=== PATIENT | female | born 1990 | race African-American/Black ===

== ENCOUNTER 2017-06-19 07:54 | Emergency (ER) | payer OTHER ==
[2017-06-19] MEDS ORDERED: IPRATROPIUM/ALBUTEROL 3 ML NEB INH STA (08:59)
[2017-06-19] MEDS ORDERED: IPRATROPIUM/ALBUTEROL 3 ML NEB INH ONE (09:13)
--- NOTE | 2017-06-19 10:09 | XRAY Preliminary Report ---
Exam: XR CHEST 2 VIEW PA/LAT IMPRESSION: No radiographically apparent acute abnormality in the chest. Clear lungs. [facility] SITE ID: [id number]
--- NOTE | 2017-06-19 10:11 | XRAY Report ---
EXAM: CHEST RADIOGRAPHY EXAM DATE: 06/19/2017 09:58 AM. CLINICAL HISTORY: Cough and dyspnea. COMPARISON: None. TECHNIQUE: 2 views. FINDINGS: Lungs/Pleura: No focal opacities evident. No pleural effusion. No pneumothorax. Normal volumes. Mediastinum: Heart and mediastinal contours are unremarkable. Other: Posterior elements of T1 and T2 are unfused; an incidental finding of doubtful clinical signif icance. IMPRESSION: No radiographically apparent acute abnormality in the chest. Clear lungs. [facility] Referring Provider Line: [phone] SITE ID: [id number]
[2017-06-19] MEDS ORDERED: DEXAMETHASONE 10 MG/ML VIAL PO STA (10:26)
--- NOTE | 2017-06-19 10:28 | ED Physician Documentation ---
PD HPI DYSPNEA - Stated complaint Stated Complaint: cough - Chief complaint Chief Complaint: Resp - History obtained from History obtained from: Patient - History of Present Illness Timing - onset: How many weeks ago (1) Timing - details: Gradual onset Associated symptoms: Fever, Cough Similar symptoms before: No diagnosis (Reports similar symptoms several months ago.) - Additional information Additional information: The patient is a 26-year-old female who presents with productive cough of one week's duration. She complains of congestion and felt "feverish" 2 nights ago. She denies headache, sore throat, or myalgias. She reports history of similar symptoms several months ago, that resolved spontaneously. She smokes cigarettes. Review of Systems Constitutional: reports: Fever Nose: reports: Congestion Throat: denies: Sore throat Cardiac: denies: Chest pain / pressure Respiratory: reports: Dyspnea, Cough GI: denies: Abdominal Pain, Nausea, Vomiting : denies: Dysuria Skin: denies: Rash Musculoskeletal: denies: Back pain, Extremity swelling Neurologic: denies: Headache PD PAST MEDICAL HISTORY - Past Medical History Cardiovascular: None Neuro: None Endocrine/Autoimmune: None - Past Surgical History Past Surgical History: No - Present Medications Home Medications: Ambulatory Orders Medication Instructions Recorded Confirmed Albuterol Sulfate [Proventil Hfa 1 - 2 puffs INH Q4H PRN #1 inhaler 06/19/17 Inhaler] Dextroamphetamine/Amphetamine 30 mg PO DAILY 06/19/17 06/19/17 [Adderall 30 mg Tablet] Inhaler, Assist Devices 1 each MC PRN PRN #1 spacer 06/19/17 [Aerochamber Mini] predniSONE [Prednisone] 30 mg PO DAILY #15 tablet 06/19/17 - Allergies Allergies/Adverse Reactions: Allergies Allergy/AdvReac Type Severity Reaction Status Date / Time Penicillins AdvReac Unknown Unknown Verified 02/09/15 19:21 - Social History Does the pt smoke?: Yes Smoking Status: Current every day smoker Does the pt drink ETOH?: No Does the pt have substance abuse?: No - Immunizations Immunizations are current?: Yes - POLST Patient has POLST: No PD ED PE NORMAL - Vitals Vital signs reviewed: Yes (Borderline hypertension initially, but normal blood pressure by time of dis) - General General: Alert and oriented X 3, Well developed/nourished - HEENT HEENT: Atraumatic, EOMI, Pharynx benign - Neck Neck: No adenopathy, No JVD - Cardiac Cardiac: RRR, No murmur - Respiratory Respiratory: Other (Course breath sounds bilaterally.) - Abdomen Abdomen: Soft, Non tender - Back Back: No CVA TTP - Derm Derm: No rash - Extremities Extremities: No edema, No calf tenderness / cord - Neuro Neuro: Alert and oriented X 3, No motor deficit, Normal speech Results - Vitals Vitals: Oxygen O2 Source Room air - Rads (name of study) 2-view CXR Radiology: Prelim report reviewed, EMP read contemporaneously, See rad report ( No acute radiographic abnormality; clear lungs.) PD MEDICAL DECISION MAKING - ED course Complexity details: reviewed results, re-evaluated patient, considered differential, d/w patient ED course: The patient's presentation is most consistent with acute asthmatic bronchitis. Chest x-ray reveals no evidence of pneumonia or congestive heart failure. Treatment in the emergency department included administration of dexamethasone 10 mg orally, and DuoNeb nebulizer treatment. The patient felt subjectively improved after the above treatment, and repeat auscultation of her chest reveals clear lung montes. She is being discharged with prescription for albuterol inhaler and for prednisone. I discussed with her the expected course of illness, symptomatic treatment and outpatient follow-up, as well as potentially worrisome signs or symptoms that should prompt reevaluation in the emergency department. I also discussed with her the importance of cessation of cigarette smoking. Departure - Departure Disposition: 01 Home, Self Care Clinical Impression: Asthmatic bronchitis Qualifiers: Asthma severity: moderate Asthma persistence: persistent Asthma complication type: uncomplicated Qualified Code(s): J45.40 - Moderate persistent asthma, uncomplicated Condition: Stable Instructions: ED Bronchitis Asthmatic Follow-Up: Howie Naqvi ARNP [Primary Care Provider] - Prescriptions: Albuterol Sulfate [Proventil Hfa Inhaler] 1 - 2 puffs INH Q4H PRN #1 inhaler PRN Reason: Shortness Of Air/Wheezing Inhaler, Assist Devices [Aerochamber Mini] 1 each MC PRN PRN #1 spacer PRN Reason: Wheezing predniSONE [Prednisone] 30 mg PO DAILY #15 tablet Comments: Try to stop smoking cigarettes. Use the albuterol inhaler with spacer device as prescribed. Take prednisone once daily for 5 days. Follow up with your primary physician tomorrow as scheduled. Return to the emergency department if you develop increasing difficulty breathing, or otherwise worsening symptoms. Discharge Date/Time: 06/19/17 10:40
[2017-06-19 10:32] VITALS: BP 116/67
[2017-06-19] MEDS ORDERED: DEXAMETHASONE 10 MG/ML VIAL ONE (10:35)
[2017-06-19] MEDS ORDERED: CHERRY SYRUP 10 ML UDC PO ONE (10:36)
== END 2017-06-19 10:40 | disposition home or self-care (01) ==
LOC: ED 07:54
DX: J45.40 Moderate persistent asthma, uncomplicated (principal); F17.200 Nicotine dependence, unspecified, uncomplicated
CPT/HCPCS: 71020; 94640; 99283; 99284; A9270; J7620